=== PATIENT | female | born 1970 | race African-American/Black ===

== ENCOUNTER 2018-05-08 10:03 | Emergency (ER) | payer OTHER ==
[~2018-05-08] VITALS: Ht 170.2 cm; Wt 93.0 kg
[2018-05-08 10:05] VITALS: BP 163/79
[2018-05-08] MEDS ORDERED: CLEOCIN HCL150 MG PO (10:27)
[2018-05-08] MEDS ORDERED: NORCO 10-325 T1 EACH PO (10:27)
== END 2018-05-08 11:03 | disposition home or self-care (01) ==
LOC: ER 10:03
DX: K08.89 Other specified disorders of teeth and supporting structures (principal); R51 Headache; Z88.0 Allergy status to penicillin